=== PATIENT | female | born 1995 | race Caucasian/White ===

== ENCOUNTER 2019-01-31 04:46 | Emergency (ER) | payer MEDICAID, OTHER ==
[~2019-01-31] VITALS: Ht 157 cm; Wt 79.5 kg
[~2019-01-31 04:46] MED LIST: ACHD5005 PO; CEPH500C PO; CITA10TA GT; CLIN300C11 PO; CLIN300C3 PO; HYDR-757 PO; IBUP-1773 PO; Ibuprofen PO; KETO75CA PO; LRZ1T PO; METR500T PO; NITR100C PO; ONDA4TAB11 PO; OXYC-12 PO
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
[2019-01-31] MEDS ORDERED: KETOROLAC 60 MG/2 ML VIAL IM ONE (05:15)
[2019-01-31] MEDS ORDERED: CYCL10TA9 PO (05:24)
[2019-01-31 05:35] VITALS: BP 152/80
--- NOTE | 2019-01-31 06:43 | Diagnostic Imaging Report ---
INDICATION: Injury, pain and swelling FINDINGS: No pathologically displaced fat pad. No articular incongruity. No fracture or dislocation. IMPRESSION: Unremarkable 3 view right elbow Dictated by: Dictated on workstation # [id number]
--- OUTSIDE RECORDS SUMMARY | 2019-02-23 19:20 | XMS REPORT ---
Author Author SHIRAZ ROBERTS POS Organization [facility] SP Address [address] [place] [address] SP Care Team Providers Care Swimming Coach Name Role Phone POS SHIRAZ ROBERTS Unavailable SP PROBLEMS Type Condition ICD9-CM Code [id number] Code Onset Dates Condition S tatus SNOMED POS Problem Multiple loss, not currently N9 6 Active [id number] POS Problem Gastroesophageal reflux disease, esophagitis pre sence not specified SP Active 547790494 SP Problem Weight gain R63.5 Active 9228273 SP ALLERGIES No Information ENCOUNTERS Encounter Location Date Diagnosis [place] [address] [place] [id number] [place] [phone] SP Oct, Weight loss counseling, enco unter for Z71.3 and Gastroesophageal SP disease, esophagitis presence not specified K21.9 [place] [address] [place] [id number] [address] [place] [phone] SP July, High-risk sexual behavior Z7 2.51 and Exposure to STD Z20.2 SP [place] [address] [place] [id number] [place] [phone] SP Dec, Depression, unspecified depr ession type F32.9 SP [place] [address] [facility] [id number] [address] [place] [phone] SP July, Multiple loss, not currently N96 and Acute SPrecurrent maxillary sinusitis J01.00 [place] [address] [place] [id number] [address] [place] [phone] SP July, Lipoma D17.9 ; Weight gain R 63.5 and Multiple loss, not SPcurrently N96 [place] [address] [place] [id number] [place] [phone] SP Jul, SAB (spontaneous ) O 03.9 SP [place] [address] [address] SP May, SAB (spontaneous ) O 03.9 SP [place] [address] [address] SP May, Spontaneous miscarriage O03. 9 SP [place] [address] [address] SP May, Spontaneous miscarriage O03. 9 and Desire for Z31.9 SP [place] [address] [phone] SP May, Threatened miscarriage O20.0 ; Screening for malignant neoplasm SP cervix Z12.4 and Abdominal pain, generalized R10.84 [facility] [address] SP May, Gastritis K29.70 ; Z33.1 and Acute bacterial SP H10.30 [facility] [address] SP 17 May, 2015 Upper respiratory tract infe ction, unspecified type J06.9 ; SP J02.9 ; Nausea and vomiting, unspecified intactability, vomiting of unspecified type R11.2 and Rash R21 [place] [address] [address] SP Jan, Encounter for immunization Z 23 SP [place] [address] [address] SP Jul, SP [place] [address] [address] SP Mar, SP [place] [address] [address] SP Mar, SP [place] [address] [place] [address] SP Dec, SP [facility] [address] [id number] [address] [place] [address], [place] [address] SP Dec, SP [facility] [address] [id number] [address] [place] [address], [place] [address] SP Dec, SP [facility] [address] [id number] [address] [place] [address], [place] [address] SP Dec, SP [facility] [address] [id number] [address] [place] [address], [place] [address] SP Dec, SP [facility] [address] [id number] [address] [place] [address], [place] [address] SP Dec, SP [facility] [address] [id number] [address] [place] [address], [place] [address] SP Oct, SP [facility] [address] [id number] [address] [place] [address], [place] [address] SP Oct, SP [facility] [address] [id number] [address] [place] [address], [place] [address] SP Oct, SP [facility] [address] [id number] [address] [place] [address], [place] [address] SP Oct, SP [facility] [address] [id number] [address] [place] [address], [place] [address] SP Sep, SP [facility] [address] [id number] [address] [place] [address], [place] [address] SP Sep, SP [facility] [address] [id number] [address] [place] [address], [place] [address] SP Sep, SP [facility] [address] [id number] [address] [place] [address], [place] [address] SP Sep, SP [facility] [address] [id number] [address] [place] [address], [place] [address] SP Aug, SP [facility] [address] [id number] [address] [place] [phone] SP Aug, SP [facility] [address] [id number] [address] [place] [phone] SP Aug, SP [facility] [address] [id number] [address] [place] [phone] SP Aug, SP [facility] [address] [id number] [address] [place] [phone] SP Aug, SP [facility] [address] [id number] [address] [place] [phone] SP Aug, SP [facility] [address] [id number] [address] [place] [phone] SP July, SP [facility] [address] [id number] [address] [place] [phone] SP July, SP [facility] [address] [id number] [address] [place] [phone] SP July, SP [facility] [address] [id number] [address] [place] [phone] SP July, SP [facility] [address] [id number] [address] [place] [phone] SP July, SP IMMUNIZATIONS No Known Immunizations SOCIAL HISTORY Never Assessed REASON FOR VISIT PLAN OF CARE VITAL SIGNS MEDICATIONS No Known Medications RESULTS No Results PROCEDURES No Known procedures INSTRUCTIONS MEDICATIONS ADMINISTERED No Known Medications MEDICAL (GENERAL) HISTORY Type Description Date POS Medical History Heart murmur SP Medical History Intrauterine affecting management of mother, unspecified SP to episode of care SP Medical History Intrauterine affecting management of mother, unspecified SP to episode of care SP Medical History Lipoma SP Surgical History wound debridement left thigh SP Hospitalization History still born child 2013 SP
--- OUTSIDE RECORDS SUMMARY | 2019-02-23 19:20 | XMS REPORT ---
Author Author EVA ESCOBAR POS Organization [facility] SP Address Unknown SP SP Care Team Providers Care Marketing Data Specialist Name Role Phone POS HARJEET ESCOBARLEY Unavailable SP PROBLEMS Type Condition ICD9-CM Code MVD86-OG Code Onset Dates Condition S tatus SNOMED POS Problem Multiple loss, not currently N9 6 Active [id number] POS Problem Gastroesophageal reflux disease, esophagitis pre sence not specified SP Active 668703014 SP Problem Weight gain R63.5 Active 6256464 SP ALLERGIES No Information ENCOUNTERS Encounter Location Date Diagnosis [place] [address] [place] [id number] [address] [place] [phone] SP Oct, Weight loss counseling, enco unter for Z71.3 and Gastroesophageal SP disease, esophagitis presence not specified K21.9 [place] [address] [place] [id number] [address] [place] [phone] SP July, High-risk sexual behavior Z7 2.51 and Exposure to STD Z20.2 SP [place] [address] [place] [id number] [address] [place] [phone] SP Dec, Depression, unspecified depr ession type F32.9 SP [place] [address] [address] [facility] [id number] [address] [place] [phone] SP July, Multiple loss, not currently N96 and Acute SPrecurrent maxillary sinusitis J01.00 [place] [address] [address] [facility] [id number] [address] [place] [phone] SP July, Lipoma D17.9 ; Weight gain R 63.5 and Multiple loss, not SPcurrently N96 [place] [address] [place] [id number] [address] [place] [phone] SP Jul, SAB (spontaneous ) O 03.9 SP [facility] [address] [place] [id number] [place] [phone] SP May, SAB (spontaneous ) O 03.9 SP [facility] [address] [place] [id number] [address] [place] [phone] SP May, Spontaneous miscarriage O03. 9 SP [place] [address] [address] SP May, Spontaneous miscarriage O03. 9 and Desire for Z31.9 SP [place] [address] [phone] SP May, Threatened miscarriage O20.0 ; Screening for malignant neoplasm SP cervix Z12.4 and Abdominal pain, generalized R10.84 [facility] [address] SP May, Gastritis K29.70 ; Z33.1 and Acute bacterial SP H10.30 [facility] [address] SP May, Upper respiratory tract infe ction, unspecified type J06.9 ; SP J02.9 ; Nausea and vomiting, unspecified intactability, vomiting of unspecified type R11.2 and Rash R21 [place] [address] [place] [id number] [address] [place] [phone] SP Jan, Encounter for immunization Z 23 SP [facility] [address] [place] [id number] [address] [place] [phone] SP Jul, SP [place] [address] [id number] SP Mar, SP [facility] [address] [place] [id number] [address] [place] [phone] SP Mar, SP [place] [address] [id number] SP Dec, SP [facility] [address] [id number] [address] [place] [address], [place] [address] SP Dec, SP [facility] [address] [id number] [address] [place] [address], [place] [address] SP Dec, SP [facility] [address] [id number] [address] [place] [address], [place] [address] SP Dec, SP [facility] [address] [id number] [address] [place] [address], [place] [address] SP Dec, SP [facility] [address] [id number] [address] [place] [address], [place] [address] SP Dec, SP [facility] [address] [id number] [address] [place] [address], [place] [address] SP Oct, SP [facility] [address] [id number] [address] [place] [address], [place] [address] SP Oct, SP [facility] [address] [id number] [address] [place] [address], [place] [phone] SP Oct, SP [facility] [address] [id number] [address] [place] [address], [place] [address] SP Oct, SP [facility] [address] [id number] [address] [place] [address], [place] [address] SP Sep, SP [facility] [address] [id number] [address] [place] [address], [place] [address] SP Sep, SP [facility] [address] [id number] [address] [place] [address], [place] [address] SP Sep, SP [facility] [address] [id number] [address] [place] [address], [place] [address] SP Sep, SP [facility] [address] [id number] [address] [place] [address], [place] [address] SP Aug, SP [facility] [address] [id number] [address] [place] [phone] SP Aug, SP [facility] [address] [id number] [address] [place] [phone] SP Aug, SP [facility] [address] [id number] [address] [place] [phone] SP Aug, SP [facility] [address] [id number] [address] [place] [phone] SP Aug, SP [facility] [address] [id number] [address] [place] [phone] SP Aug, SP [facility] [address] [id number] [address] [place] [phone] SP July, SP [facility] [address] [id number] [address] [place] [id number] SP July, SP [facility] [address] [id number] [address] [place] [phone] SP July, SP [facility] [address] [id number] [address] [place] [id number] SP July, SP [facility] [address] [id number] [address] [place] [phone] SP July, SP IMMUNIZATIONS No Known Immunizations [...]
--- OUTSIDE RECORDS SUMMARY | 2019-02-23 19:20 | XMS REPORT ---
Author Author JANETH RESTREPO POS Organization [facility] SP Address [address] [place] [address] SP Care Team Providers Care Couples Therapist Name Role Phone POS JANETH RESTREPO Unavailable SP PROBLEMS Type Condition ICD9-CM Code [id number] Code Onset Dates Condition S tatus SNOMED POS Problem Multiple loss, not currently N9 6 Active [id number] POS Problem Gastroesophageal reflux disease, esophagitis pre sence not specified SP Active 289529171 SP Problem Weight gain R63.5 Active 2632303 SP ALLERGIES No Information ENCOUNTERS Encounter Location Date Diagnosis POS [place] [address] [address] [place] [id number] [address] [place] [phone] SP Oct, Weight loss counseling, enco unter for Z71.3 and Gastroesophageal SP disease, esophagitis presence not specified K21.9 [place] [address] [address] [place] [id number] [address] [place] [address] SP July, High-risk sexual behavior Z7 2.51 and Exposure to STD Z20.2 SP [place] [address] [address] [place] [id number] [address] [place] [phone] SP Dec, Depression, unspecified depr ession type F32.9 SP [place] [address] [address] [place] [id number] [address] [place] [phone] SP July, Multiple loss, not currently N96 and Acute SPrecurrent maxillary sinusitis J01.00 [place] [address] [place] [id number] [address] [place] [phone] SP July, Lipoma D17.9 ; Weight gain R 63.5 and Multiple loss, not SPcurrently N96 [place] [address] [address] [place] [id number] [address] [place] [phone] SP Jul, SAB (spontaneous ) O 03.9 SP [place] [address] [address] SP May, SAB (spontaneous ) O 03.9 SP [place] [address] [address] SP May, Spontaneous miscarriage O03. 9 SP [place] [address] [address] SP May, Spontaneous miscarriage O03. 9 and Desire for Z31.9 SP [place] [address] [address] SP May, Threatened miscarriage O20.0 ; Screening for malignant neoplasm SP cervix Z12.4 and Abdominal pain, generalized R10.84 [facility] [address] SP May, Gastritis K29.70 ; Z33.1 and Acute bacterial SP H10.30 [facility] [address] SP May, Upper respiratory tract infe ction, unspecified type J06.9 ; SP J02.9 ; Nausea and vomiting, unspecified intactability, vomiting of unspecified type R11.2 and Rash R21 [place] [address] [address] SP Jan, Encounter for immunization Z 23 SP [place] [address] [address] [place] [id number] [address] [place] [phone] SP Jul, SP [place] [address] [address] SP Mar, SP [place] [address] [place] [id number] [address] [place] [phone] SP Mar, SP [place] [address] [address] [place] [address] SP Dec, SP [facility] [address] [id number] [address] [place] [address], [place] [address] SP Dec, SP [facility] [address] [id number] [address] [place] [address], [place] [address] SP Dec, SP [facility] [address] [id number] [address] [place] [address], [place] [address] SP Dec, SP [facility] [address] [id number] [address] [place] [address], [place] [address] SP Dec, SP [facility] [address] [id number] [address] [place] [address], [place] [address] SP Dec, SP [facility] [address] [id number] [address] [place] [address], [place] [address] SP Oct, SP [facility] [address] [id number] [address] [place] [address], [place] [address] SP Oct, SP [facility] [address] [id number] [address] [place] [address], [place] [address] SP Oct, SP [facility] [address] [id number] [address] [place] [address], [place] [address] SP Oct, SP [facility] [address] [id number] [address] [place] [address], [place] [address] SP Sep, SP [facility] [address] [id number] [address] [place] [address], [place] [address] SP Sep, SP [facility] [address] [id number] [address] [place] [address], [place] [address] SP Sep, SP [facility] [address] [id number] [address] [place] [address], [place] [address] SP Sep, SP [facility] [address] [id number] [address] [place] [address], [place] [address] SP Aug, SP [facility] [address] [id number] [address] [place] [phone] SP Aug, SP [facility] [address] [id number] [address] [place] [phone] SP Aug, SP [facility] [address] [id number] [address] [place] [phone] SP Aug, SP [facility] [address] [id number] [address] [place] [phone] SP Aug, SP [facility] [address] [id number] [address] [place] [phone] SP Aug, SP [facility] [address] [id number] [address] [place] [phone] SP July, SP [facility] [address] [id number] [address] [place] [phone] SP July, SP [facility] [address] [id number] [address] [place] [phone] SP July, SP [facility] [address] [id number] [address] [place] [phone] SP July, SP [facility] [address] [id number] [address] [place] [phone] SP July, SP IMMUNIZATIONS No Known Immunizations SOCIAL HISTORY Never Assessed REASON FOR VISIT PLAN OF CARE VITAL SIGNS Height 63 in 2013-10-22 POS Weight 189 lbs 2013-10-22 POS Temperature 97.2 degrees Fahrenheit 2013-10-22 POS Heart Rate 88 bpm 2013-10-22 POS Respiratory Rate 20 2013-10-22 POS Blood pressure systolic 116 mmHg 2013-10-22 POS Blood pressure diastolic 70 mmHg 2013-10-22 POS MEDICATIONS No Known Medications RESULTS No Results PROCEDURES Procedure Date Ordered Result Body Site POS OB US >/=14 WKS, SNGL FETUS October 22, 2013 SP URINE-NO MICRO October 22, 2013 SP INSTRUCTIONS MEDICATIONS ADMINISTERED No Known Medications MEDICAL [...]
--- OUTSIDE RECORDS SUMMARY | 2019-02-23 19:20 | XMS REPORT ---
Author Author TAURUS FISHER POS Organization [facility] SP Address [facility] [place] [address] SP Care Team Providers Care Door Repairman Name Role Phone POS TAURUS FISHER Unavailable SP PROBLEMS ALLERGIES No Information ENCOUNTERS IMMUNIZATIONS No Known Immunizations SOCIAL HISTORY No smoking Hx information available REASON FOR VISIT PLAN OF CARE VITAL SIGNS MEDICATIONS No Known Medications RESULTS No Results PROCEDURES INSTRUCTIONS MEDICATIONS ADMINISTERED No Known Medications MEDICAL (GENERAL) HISTORY
--- OUTSIDE RECORDS SUMMARY | 2019-02-23 19:20 | XMS REPORT ---
Author Author JANETH RESTREPO POS Organization [facility] SP Address [address] [place] [address] SP Care Team Providers Care Clam Grower Name Role Phone POS JANETH RESTREPO Unavailable SP PROBLEMS Type Condition ICD9-CM Code OSB00-QX Code Onset Dates Condition S tatus SNOMED POS Problem Multiple loss, not currently N9 6 Active [id number] POS Problem Gastroesophageal reflux disease, esophagitis pre sence not specified SP Active 430447054 SP Problem Weight gain R63.5 Active 4149881 SP ALLERGIES No Information ENCOUNTERS Encounter Location Date Diagnosis POS [place] [address] [address] [place] [id number] [address] [place] [phone] SP Oct, Weight loss counseling, enco unter for Z71.3 and Gastroesophageal SP disease, esophagitis presence not specified K21.9 [place] [address] [address] [place] [id number] [address] [place] [address] SP July, High-risk sexual behavior Z7 2.51 and Exposure to STD Z20.2 SP [place] [address] [address] [place] [id number] [address] [place] [address] SP Dec, Depression, unspecified depr ession type F32.9 SP [place] [address] [address] [place] [id number] [address] [place] [address] SP July, Multiple loss, not currently N96 and Acute SPrecurrent maxillary sinusitis J01.00 [place] [address] [address] [place] [id number] [address] [place] [address] SP July, Lipoma D17.9 ; Weight gain R 63.5 and Multiple loss, not SPcurrently N96 [place] [address] [address] [place] [id number] [address] [place] [address] SP Jul, SAB (spontaneous ) O 03.9 SP [place] [address] [address] SP May, SAB (spontaneous ) O 03.9 SP [place] [address] [address] SP May, Spontaneous miscarriage O03. 9 SP [place] [address] [phone] SP May, Spontaneous miscarriage O03. 9 and Desire for Z31.9 SP [place] [address] [address] SP May, Threatened miscarriage O20.0 ; Screening for malignant neoplasm SP cervix Z12.4 and Abdominal pain, generalized R10.84 [facility] [address] SP May, Gastritis K29.70 ; Z33.1 and Acute bacterial SP H10.30 [facility] [address] SP May, Upper respiratory tract infe ction, unspecified type J06.9 ; SP J02.9 ; Nausea and vomiting, unspecified intactability, vomiting of unspecified type R11.2 and Rash R21 [place] [address] [address] SP Jan, Encounter for immunization Z 23 SP [place] [address] [address] [place] [id number] [address] [place] [phone] SP Jul, SP [place] [address] [address] SP Mar, SP [place] [address] [address] [place] [id number] [address] [place] [phone] SP Mar, SP [place] [address] [place] [address] SP Dec, SP [facility] [address] [id number] [address] [place] [address], [place] [address] SP Dec, SP [facility] [address] [id number] [address] [place] [address], [place] [address] SP Dec, SP [facility] [address] [id number] [address] [place] [address], [place] [address] SP Dec, SP [facility] [address] [id number] [address] [place] [address], [place] [address] SP Dec, SP [facility] [address] [id number] [address] [place] [address], [place] [address] SP Dec, SP [facility] [address] [id number] [address] [place] [address], [place] [address] SP Oct, SP [facility] [address] [id number] [address] [place] [address], [place] [address] SP Oct, SP [facility] [address] [id number] [address] [place] [address], [place] [address] SP Oct, SP [facility] [address] [id number] [address] [place] [address], [place] [address] SP Oct, SP [facility] [address] [id number] [address] [place] [address], [place] [address] SP Sep, SP [facility] [address] [id number] [address] [place] [address], [place] [address] SP Sep, SP [facility] [address] [id number] [address] [place] [address], [place] [address] SP Sep, SP [facility] [address] [id number] [address] [place] [address], [place] [address] SP Sep, SP [facility] [address] [id number] [address] [place] [address], [place] [address] SP Aug, SP [facility] [address] [id number] [address] [place] [address] SP Aug, SP [facility] [address] [id number] [address] [place] [phone] SP Aug, SP [facility] [address] [id number] [address] [place] [address] SP Aug, SP [facility] [address] [id number] [address] [place] [address] SP Aug, SP [facility] [address] [id number] [address] [place] [address] SP Aug, SP [facility] [address] [id number] [address] [place] [phone] SP July, SP [facility] [address] [id number] [address] [place] [address] SP July, SP [facility] [address] [id number] [address] [place] [address] SP July, SP [facility] [address] [id number] [address] [place] [phone] SP July, SP [facility] [address] [id number] [address] [place] [phone] SP July, SP IMMUNIZATIONS No Known Immunizations SOCIAL HISTORY Never Assessed REASON FOR VISIT PLAN OF CARE VITAL SIGNS Height 63 in 2014-01-07 POS Weight 191.5 lbs 2014-01-07 POS Temperature 97.1 degrees Fahrenheit 2014-01-07 POS Heart Rate 87 bpm 2014-01-07 POS Respiratory Rate 20 2014-01-07 POS Blood pressure systolic 135 mmHg 2014-01-07 POS Blood pressure diastolic 88 mmHg 2014-01-07 POS MEDICATIONS No Known Medications RESULTS No Results PROCEDURES Procedure Date Ordered Result Body Site POS THER/PROPH/DIAG INJ, SC/IM Jan 07, 2014 SP Medroxyprogesterone inj Jan 07, 2014 SP URINE TEST Jan 07, 2014 SP URINE-NO MICRO Jan 07, 2014 SP INSTRUCTIONS MEDICATIONS ADMINISTERED No Known Medications [...]
--- OUTSIDE RECORDS SUMMARY | 2019-02-23 19:20 | XMS REPORT | Clinical Summary ---
Author Author [facility] POS Organization [facility] SP Address Unknown SP Phone Unavailable SP Care Team Providers Care Head Screen Worker Name Role Phone POS Rhianna Hines MD Unavailable [phone] SP Source Comments Some departments are not documenting in the electronic medical record. If you d o not see the information that you expected, contact Release of Information in [facility] Health Information Management department at [phone] for further assistan ce in locating additional records.[facility] Allergies No Known Allergies Medications End Date Status POS Medication Sig Dispensed Refills Start SP Date SP Active SP metFORMIN (GLUCOPHAGE) Take 1 Tab by 180 Tab 3 0 SP 500 mg tabletIndications: mouth twice 2 SP Dorsal cervical fat pads, daily with SP Metabolic syndrome meals. SP Active SP Naproxen 500 mg TbEC Take 1 Tab by 60 Tab 2 SP mouth as 2 SP Needed (q 12 SP hours). SP Active Problems Problem Noted Date POS Obesity 10/06/2011 SP Sleep disorder 10/06/2011 SP Family History Medical History Relation Name Comments POS Heart Disease Maternal SP Grandfather SP Cancer Maternal SP Grandmother SP Diabetes Paternal SP Grandmother SP Relation Name Status Comments SP Maternal Grandfather SP Maternal Grandmother SP Paternal Grandmother SP Social History Date POS Tobacco Use Types Packs/Day Years Used SP SP Never Smoker SP Smokeless Tobacco: Never SP Used SP Tobacco Cessation: Counseling Given: No SP Sex Assigned at Date Recorded SP Not on file SP Industry POS Job Start Date Occupation SP Not on file SP Not on file Not on file SP Travel End POS Travel History Travel Start SP No recent travel history available. SP Last Filed Vital Signs Reading Time Taken Comments POS Vital Sign SP 114/73 10/06/2011 2:56 PM CDT SP Blood Pressure SP 74 10/06/2011 2:56 PM CDT SP Pulse SP - - SP Temperature SP - - SP Respiratory Rate SP - - SP Oxygen Saturation SP - - SP Inhaled Oxygen SP Concentration SP 86.2 kg (190 lb) 10/06/2011 2:56 PM CDT SP Weight SP 162.6 cm (5' 4") 10/06/2011 2:56 PM CDT SP Height SP 32.61 10/06/2011 2:56 PM CDT SP Body Mass Index SP Plan of Treatment Health Maintenance Due Date Last Done Comments POS HIV SCREENING 2008 SP HPV VACCINES (1 - Female 2008 SP 3-dose series) SP DTAP/TDAP VACCINES (1 - 06/12/2011 SP Tdap) SP PHYSICAL (COMPREHENSIVE) 06/12/2011 SP EXAM SP CERVICAL CANCER SCREENING 2014 SP INFLUENZA VACCINE 10/31/2018 SP Results Not on filefrom Last 3 Months
--- OUTSIDE RECORDS SUMMARY | 2019-02-23 19:21 | XMS REPORT ---
Author Author EVETTE LEZAMA POS Organization [facility] SP Address [address] [place] [address] SP Care Team Providers Care Railroad Brakeman Name Role Phone POS EVETTE LEZAMA Unavailable SP PROBLEMS Type Condition ICD9-CM Code RSO59-BW Code Onset Dates Condition S tatus SNOMED POS Problem Gastroesophageal reflux disease, esophagitis pre sence not specified POS Active 425612368 SP Problem Multiple loss, not currently N9 6 Active 202010881 SP Problem Weight gain R63.5 Active 4735805 SP ALLERGIES No Known Allergies ENCOUNTERS Encounter Location Date Diagnosis POS [place] [address] [address] [place] [id number] [address] [place] [phone] SP Oct, Weight loss counseling, enco unter for Z71.3 and Gastroesophageal SP disease, esophagitis presence not specified K21.9 [place] [address] [place] [id number] [address] [place] [address] SP July, High-risk sexual behavior Z7 2.51 and Exposure to STD Z20.2 SP [place] [address] [place] [id number] [address] [place] [address] SP Dec, Depression, unspecified depr ession type F32.9 SP [place] [address] [address] [place] [id number] [address] [place] [address] SP July, Multiple loss, not currently N96 and Acute SPrecurrent maxillary sinusitis J01.00 [place] [address] [address] [place] [id number] [address] [place] [address] SP July, Lipoma D17.9 ; Weight gain R 63.5 and Multiple loss, not SPcurrently N96 [place] [address] [address] [place] [id number] [place] [address] SP Jul, SAB (spontaneous ) O 03.9 SP [place] [address] [address] SP May, SAB (spontaneous ) O 03.9 SP [place] [address] [place] [id number] [place] [address] SP May, Spontaneous miscarriage O03. 9 SP [place] [address] [address] SP May, Spontaneous miscarriage O03. 9 and Desire for Z31.9 SP [place] [address] [address] SP May, Threatened miscarriage O20.0 ; Screening for malignant neoplasm SP cervix Z12.4 and Abdominal pain, generalized R10.84 [facility] [address] SP May, Gastritis K29.70 ; Z33.1 and Acute bacterial SP H10.30 [facility] [address] SP May, Upper respiratory tract infe ction, unspecified type J06.9 ; SP J02.9 ; Nausea and vomiting, unspecified intactability, vomiting of unspecified type R11.2 and Rash R21 [place] [address] [place] [id number] [place] [address] SP Jan, Encounter for immunization Z 23 SP [place] [address] [place] [id number] [place] [address] SP Jul, SP [place] [address] [place] [id number] [place] [address] SP Mar, SP [place] [address] [place] [id number] [place] [address] SP Mar, SP [place] [address] [place] [id number] [place] [address], [place] [address] SP Dec, SP [facility] [address] [id number] [address] [place] [address], [place] [address] SP Dec, SP [facility] [address] [id number] [address] [place] [address], [place] [address] SP Dec, SP [facility] [address] [id number] [address] [place] [address], [place] [address] SP Dec, SP [facility] [address] [id number] [address] [place] [address], [place] [address] SP Dec, SP [facility] [address] [id number] [address] [place] [address], [place] [address] SP Dec, SP [facility] [address] [id number] [address] [place] [address], [place] [address] SP Oct, SP [facility] [address] [id number] [address] [place] [address], [place] [address] SP Oct, SP [facility] [address] [id number] [address] [place] [address], [place] [address] SP Oct, SP [facility] [address] [id number] [address] [place] [address], [place] [address] SP Oct, SP [facility] [address] [id number] [address] [place] [address], [place] [address] SP Sep, SP [facility] [address] [id number] [address] [place] [address], [place] [address] SP Sep, SP [facility] [address] [id number] [address] [place] [address], [place] [address] SP Sep, SP [facility] [address] [id number] [address] [place] [address], [place] [address] SP Sep, SP [facility] [address] [id number] [address] [place] [address], [place] [address] SP Aug, SP [facility] [address] [id number] [address] [place] [address] SP Aug, SP [facility] [address] [id number] [address] [place] [phone] SP Aug, SP [facility] [address] [id number] [address] [place] [address] SP Aug, SP [facility] [address] [id number] [address] [place] [address] SP Aug, SP [facility] [address] [id number] [address] [place] [address] SP Aug, SP [facility] [address] [id number] [address] [place] [address] SP July, SP [facility] [address] [id number] [address] [place] [address] SP July, SP [facility] [address] [id number] [address] [place] [address] SP July, SP [facility] [address] [id number] [address] [place] [address] SP July, SP [facility] [address] [id number] [address] [place] [address] SP July, SP IMMUNIZATIONS No Known Immunizations SOCIAL HISTORY Never Assessed REASON FOR VISIT Weight management consult would like to talk about diet pills Devyn Grove RN, aci d reflux issues PLAN OF CARE Activity Details POS SP Follow Up 4 Weeks Reason:wt loss SP VITAL SIGNS Height 63 in 2017-11-07 POS Weight 211.5 lbs 2017-11-07 POS Temperature 99.1 degrees Fahrenheit 2017-11-07 POS Heart Rate 86 bpm 2017-11-07 POS Respiratory Rate 16 2017-11-07 POS BMI 37.46 kg/m2 2017-11-07 POS Blood pressure systolic 120 mmHg 2017-11-07 POS Blood pressure diastolic 72 mmHg 2017-11-07 POS MEDICATIONS Medication Instructions Dosage Frequency Start Date End Date Duration S tatus POS Phentermine HCl 37.5 MG Orally Once a day 1 tablet 24h Oct, Dec, SP days Active SP Ibuprofen 600 MG Orally Three times a day 1 tablet 8h Active SP Prilosec OTC 20 MG Orally Once a day 1 tablet 24h Active SP RESULTS No Results PROCEDURES No Known procedures [...]
--- OUTSIDE RECORDS SUMMARY | 2019-02-23 19:21 | XMS REPORT ---
Author Author JEAN COOLEY POS Organization [facility] SP Address [address] [place] [id number] SP Care Team Providers Care Photographer Finish Name Role Phone POS JEAN COOLEY Unavailable SP PROBLEMS Type Condition ICD9-CM Code XER15-VB Code Onset Dates Condition S tatus SNOMED POS Problem Weight gain R63.5 Active 7459936 POS Problem Multiple loss, not currently N9 6 Active [id number] SP Assessment Depression, unspecified depression type F32.9 14 Dec, 2015 Active SP ALLERGIES Unknown Allergies SOCIAL HISTORY No smoking Hx information available PLAN OF CARE VITAL SIGNS MEDICATIONS Unknown Medications RESULTS No Results PROCEDURES Procedure Date Ordered Related Diagnosis Body Site POS Psych diagnostic evaluation, established patient Dec 15, 2015 SP IMMUNIZATIONS No Known Immunizations
--- OUTSIDE RECORDS SUMMARY | 2019-02-23 19:21 | XMS REPORT ---
Author Author CHITRA CONRAD POS Organization [facility] SP Address [address] [place] [address] SP Care Team Providers Care Tubular Products Fabricator Name Role Phone POS CHITRA CONRAD Unavailable SP PROBLEMS Type Condition ICD9-CM Code [id number] Code Onset Dates Condition S tatus SNOMED POS Problem Weight gain R63.5 Active 3382229 POS Problem Multiple loss, not currently N9 6 Active [id number] SP ALLERGIES No Known Allergies SOCIAL HISTORY Never Assessed PLAN OF CARE Activity Details POS SP Follow Up prn Reason: SP VITAL SIGNS Height 63 in 2016-08-07 POS Weight 189.0 lbs 2016-08-07 POS Temperature 98.9 degrees Fahrenheit 2016-08-07 POS Heart Rate 90 bpm 2016-08-07 POS Respiratory Rate 18 2016-08-07 POS BMI 33.48 kg/m2 2016-08-07 POS Blood pressure systolic 126 mmHg 2016-08-07 POS Blood pressure diastolic 82 mmHg 2016-08-07 POS MEDICATIONS No Known Medications RESULTS Name Result Date Reference Range POS TEST, URINE (IN HOUSE) 2016-08-07 SP RESULTS Negative SP Lot # [id number] SP Control + SP Exp date 10/30/2017 SP GC/CHLAM URINE (STATE) 2016-08-07 SP CHLAMYDIA negative SP GC negative SP HEP C ANTIBODY (STATE) 2016-08-07 SP RESULTS Non-reactive SP HEP B SURFACE ANTIGEN (STATE) 2016-08-07 SP HEP B ANTIBODY Non-reactive SP HEP B ANTIBODY (RML) SP HEP B ANTIBODY (STATE) SP SYPHILIS (STATE) 2016-08-07 SP HIV (STATE) 2016-08-07 SP PROCEDURES Procedure Date Ordered Result Body Site POS No Charge August 07, 2016 SP URINE TEST August 07, 2016 SP VENIPUNCT, ROUTINE* August 07, 2016 SP IMMUNIZATIONS No Known Immunizations MEDICAL (GENERAL) HISTORY Type Description Date POS [...]
--- OUTSIDE RECORDS SUMMARY | 2019-02-23 19:21 | XMS REPORT ---
Author Author JANETH RESTREPO POS Organization [facility] SP Address [address] [place] [address] SP Care Team Providers Care Team Assembler Name Role Phone POS JANETH RESTREPO Unavailable SP PROBLEMS Type Condition ICD9-CM Code [id number] Code Onset Dates Condition S tatus SNOMED POS Problem Multiple loss, not currently N9 6 Active [id number] POS Problem Gastroesophageal reflux disease, esophagitis pre sence not specified SP Active 321031578 SP Problem Weight gain R63.5 Active 8780654 SP ALLERGIES No Information ENCOUNTERS Encounter Location Date Diagnosis POS [place] [address] [place] [id number] [place] [address] SP Oct, Weight loss counseling, enco unter for Z71.3 and Gastroesophageal SP disease, esophagitis presence not specified K21.9 [place] [address] [place] [id number] [place] [address] SP July, High-risk sexual behavior Z7 2.51 and Exposure to STD Z20.2 SP [place] [address] [place] [id number] [place] [address] SP Dec, Depression, unspecified depr ession type F32.9 SP [place] [address] [place] [id number] [place] [phone] SP July, Multiple loss, not currently N96 and Acute SPrecurrent maxillary sinusitis J01.00 [place] [address] [place] [id number] [address] [place] [address] SP July, Lipoma D17.9 ; Weight gain R 63.5 and Multiple loss, not SPcurrently N96 [place] [address] [place] [id number] [place] [address] SP Jul, SAB (spontaneous ) O 03.9 SP [place] [address] [phone] SP May, SAB (spontaneous ) O 03.9 SP [place] [address] [phone] SP May, Spontaneous miscarriage O03. 9 SP [place] [address] [address] SP May, Spontaneous miscarriage O03. 9 and Desire for Z31.9 SP [place] [address] [address] SP May, Threatened miscarriage O20.0 ; Screening for malignant neoplasm SP cervix Z12.4 and Abdominal pain, generalized R10.84 [facility] [address] SP May, Gastritis K29.70 ; Z33.1 and Acute bacterial SP H10.30 [facility] [address] SP May, Upper respiratory tract infe ction, unspecified type J06.9 ; SP J02.9 ; Nausea and vomiting, unspecified intactability, vomiting of unspecified type R11.2 and Rash R21 [place] [address] [address] SP Jan, Encounter for immunization Z 23 SP [place] [address] [place] [id number] [place] [address] SP Jul, SP [place] [address] [phone] SP Mar, SP [place] [address] [place] [id number] [place] [phone] SP Mar, SP [place] [address] [place] [address] SP Dec, SP [facility] [address] [id number] [address] [place] [address], [place] [address] SP Dec, SP [facility] [address] [id number] [address] [place] [address], [place] [address] SP Dec, SP [facility] [address] [id number] [address] [place] [address], [place] [address] SP Dec, SP [facility] [address] [id number] [address] [place] [address], [place] [address] SP Dec, SP [facility] [address] [id number] [address] [place] [address], [place] [address] SP Dec, SP [facility] [address] [id number] [address] [place] [address], [place] [address] SP Oct, SP [facility] [address] [id number] [address] [place] [address], [place] [address] SP Oct, SP [facility] [address] [id number] [address] [place] [address], [place] [address] SP Oct, SP [facility] [address] [id number] [address] [place] [address], [place] [address] SP Oct, SP [facility] [address] [id number] [address] [place] [address], [place] [address] SP Sep, SP [facility] [address] [id number] [address] [place] [address], [place] [address] SP Sep, SP [facility] [address] [id number] [address] [place] [address], [place] [address] SP Sep, SP [facility] [address] [id number] [address] [place] [address], [place] [address] SP Sep, SP [facility] [address] [id number] [address] [place] [address], [place] [address] SP Aug, SP [facility] [address] [id number] [address] [place] [address] SP Aug, SP [facility] [address] [id number] [address] [place] [address] SP Aug, SP [facility] [address] [id number] [address] [place] [address] SP Aug, SP [facility] [address] [id number] [address] [place] [address] SP Aug, SP [facility] [address] [id number] [address] [place] [address] SP Aug, SP [facility] [address] [id number] [address] [place] [address] SP July, SP [facility] [address] [id number] [address] [place] [address] SP July, SP [facility] [address] [id number] [address] [place] [phone] SP July, SP [facility] [address] [id number] [address] [place] [address] SP July, SP [facility] [address] [id number] [address] [place] [address] SP July, SP IMMUNIZATIONS No Known Immunizations [...]
--- OUTSIDE RECORDS SUMMARY | 2019-02-23 19:21 | XMS REPORT ---
Author Author Migration, Doctor POS Organization [facility] SP Address Unknown SP Phone Unavailable SP Care Team Providers Care Safety Associate Name Role Phone POS Migration, Doctor Unavailable Unavailable SP PROBLEMS Type Condition ICD9-CM Code [id number] Code Onset Dates Condition S tatus SNOMED POS Problem Multiple loss, not currently N9 6 Active [id number] POS Problem Gastroesophageal reflux disease, esophagitis pre sence not specified SP Active 144454111 SP Problem Weight gain R63.5 Active 1586291 SP ALLERGIES No Information ENCOUNTERS Encounter Location Date Diagnosis POS [place] [address] [place] [id number] [place] [phone] SP Oct, Weight loss counseling, enco unter for Z71.3 and Gastroesophageal SP disease, esophagitis presence not specified K21.9 [place] [address] [place] [id number] [address] [place] [phone] SP July, High-risk sexual behavior Z7 2.51 and Exposure to STD Z20.2 SP [place] [address] [place] [id number] [address] [place] [phone] SP Dec, Depression, unspecified depr ession type F32.9 SP [place] [address] [facility] [id number] [address] [place] [address] SP July, Multiple loss, not currently N96 and Acute SPrecurrent maxillary sinusitis J01.00 [place] [address] [facility] [id number] [address] [place] [phone] SP July, Lipoma D17.9 ; Weight gain R 63.5 and Multiple loss, not SPcurrently N96 [place] [address] [facility] [id number] [address] [place] [address] SP Jul, SAB (spontaneous ) O 03.9 SP [facility] [address] [facility] [id number] [address] [place] [address] SP May, SAB (spontaneous ) O 03.9 SP [facility] [address] [facility] [id number] [address] [place] [phone] SP May, Spontaneous miscarriage O03. 9 SP [facility] [address] [place] [id number] [place] [address] SP May, Spontaneous miscarriage O03. 9 and Desire for Z31.9 SP [facility] [address] [place] [id number] [place] [address] SP May, Threatened miscarriage O20.0 ; Screening for malignant neoplasm SP cervix Z12.4 and Abdominal pain, generalized R10.84 [facility] [address] SP May, Gastritis K29.70 ; Z33.1 and Acute bacterial SP H10.30 [facility] [address] SP May, Upper respiratory tract infe ction, unspecified type J06.9 ; SP J02.9 ; Nausea and vomiting, unspecified intactability, vomiting of unspecified type R11.2 and Rash R21 [facility] [address] [place] [id number] [place] [phone] SP Jan, Encounter for immunization Z 23 SP [facility] [address] [place] [address] [id number] [place] [phone] SP Jul, SP [facility] [address] [place] [id number] [address] [place] [phone] SP Mar, SP [facility] [address] [place] [id number] [place] [address] SP Mar, SP [facility] [address] [place] [id number] [address] [place] [address] SP Dec, SP [facility] [address] [id number] [address] [place] [address], [place] [address] SP Dec, SP [facility] [address] [id number] [address] [place] [address], [place] [address] SP Dec, SP [facility] [address] [id number] [address] [place] [address], [place] [address] SP Dec, SP [facility] [address] [id number] [address] [place] [address], [place] [address] SP Dec, SP [facility] [address] [id number] [address] [place] [address], [place] [address] SP Dec, SP [facility] [address] [id number] [address] [place] [address], [place] [address] SP Oct, SP [facility] [address] [id number] [address] [place] [address], [place] [address] SP Oct, SP [facility] [address] [id number] [address] [place] [address], [place] [address] SP Oct, SP [facility] [address] [id number] [address] [place] [address], [place] [address] SP Oct, SP [facility] [address] [id number] [address] [place] [address], [place] [address] SP Sep, SP [facility] [address] [id number] [address] [place] [address], [place] [address] SP Sep, SP [facility] [address] [id number] [address] [place] [address], [place] [address] SP Sep, SP [facility] [address] [id number] [address] [place] [address], [place] [address] SP Sep, SP [facility] [address] [id number] [address] [place] [address], [place] [address] SP Aug, SP [facility] [address] [id number] [address] [place] [address], [place] [address] SP Aug, SP [facility] [address] [id number] [address] [place] [phone] SP Aug, SP [facility] [address] [id number] [address] [place] [address] SP Aug, SP [facility] [address] [id number] [address] [place] [phone] SP Aug, SP [facility] [address] [id number] [address] [place] [phone] SP Aug, SP [facility] [address] [id number] [address] [place] [address] SP July, SP [facility] [address] [id number] [address] [place] [address] SP July, SP [facility] [address] [id number] [address] [place] [phone] SP July, SP [facility] [address] [id number] [address] [place] [phone] SP July, SP [facility] [address] [id number] [address] [place] [phone] SP July, SP IMMUNIZATIONS No Known Immunizations SOCIAL HISTORY Never Assessed REASON FOR VISIT EMR-[facility] PLAN OF CARE VITAL SIGNS MEDICATIONS No [...]
--- OUTSIDE RECORDS SUMMARY | 2019-02-23 19:21 | XMS REPORT ---
Author Author HE NATARAJAN POS Organization [employer] SP Address Unknown SP Phone Unavailable SP Care Team Providers Care Bus Driver Supervisor Name Role Phone POS HE NATARAJAN CP Unavailable SP Allergies No Known Allergies Problems Problem Type Condition Code Onset Dates Condition Statu s POS Problem Unspecified contraceptive management V25.9 Active SP Problem Health examination of defined subpopulation V70.5 Active SP Problem Intrauterine affecting management of mother, unspecified as to SP of care 656.40 Active SP Problem Supervision of normal first V22.0 Active SP Assessment Encounter for immunization Z23 A ctive SP Problem Screening examination for pulmonary tuberculosis V74.1 Active SP Problem Screening examination for venereal disease V74.5 Active SP Medications No Known Medications Procedures Procedure Coding System Code Date POS SINGLE IMMUNIZATION ADMIN CPT-4 90204 Jan SP FLUARIX QUAD (3 & UP)-GSK-2014 CPT-4 97201 N 2014 SP Results No Known Results Immunizations Vaccine Administration Date POS FLUARIX QUAD (3 & UP)-GSK-2014Feb 03, 2015 SP Summary Purpose [employer] Submission
== END 2019-01-31 05:36 | disposition home or self-care (01) ==
LOC: EDUNIT# 04:46 → ER 04:51
DX: S06.0X1A Concussion with loss of consciousness of 30 minutes or less, initial encounter (principal); S00.12XA Contusion of left eyelid and periocular area, initial encounter; M25.521 Pain in right elbow; R40.2142 Coma scale, eyes open, spontaneous, at arrival to emergency department; R40.2252 Coma scale, best verbal response, oriented, at arrival to emergency department; R40.2362 Coma scale, best motor response, obeys commands, at arrival to emergency department; Y04.8XXA Assault by other bodily force, initial encounter
CPT/HCPCS: 73080; 96372

== ENCOUNTER 2019-12-02 18:35 | Emergency (ER) | payer BC, OTHER ==
[~2019-12-02] VITALS: Ht 157.5 cm; Wt 103.5 kg
[~2019-12-02 18:35] MED LIST changes: +CYCL10TA9 PO
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
[2019-12-02 19:35] LABS: BILIRUBIN,URINE 1+ (NEGATIVE); CLARITY,URINE SL CLOUDY; COLOR,URINE YELLOW; GLUCOSE, URINE (UA) NEGATIVE (NEGATIVE); KETONES,URINE NEGATIVE (NEGATIVE); LEUKOCYTE ESTERASE ,URINE 1+ (NEGATIVE); NITRITE,URINE NEGATIVE (NEGATIVE); PROTEIN,URINE NEGATIVE (NEGATIVE)
[2019-12-02 19:37] LABS: BACTERIA,URINE FEW /HPF; RBC,URINE RARE /HPF; WBC,URINE 0-2 /HPF
[2019-12-02 19:38] LABS: AMPHETAMINE SCREEN, URINE NEGATIVE (NEGATIVE); BARBITURATE SCREEN URINE NEGATIVE (NEGATIVE); BENZODIAZEPINES SCREEN URINE NEGATIVE (NEGATIVE); CANNABINOID SCREEN, URINE POSITIVE (NEGATIVE); COCAINE SCREEN URINE NEGATIVE (NEGATIVE); METHADONE STAT NEGATIVE (NEGATIVE); METHAMPHETAMINE SCREEN URINE S NEGATIVE (NEGATIVE); OPIATE SCREEN URINE NEGATIVE (NEGATIVE); OXYCODONE STAT NEGATIVE (NEGATIVE); PROPOXYPHENE STAT NEGATIVE (NEGATIVE); TRICYCLIC ANTIDEPRESSANTS SCRE NEGATIVE (NEGATIVE)
[2019-12-02] MEDS ORDERED: KETOROLAC 60 MG/2 ML VIAL IM ONE (20:15)
[2019-12-02] MEDS ORDERED: ORPHENADRINE 60 MG/2 ML (NORFLEX) AMP (ED ONLY) IM ONE (20:15)
[2019-12-02] MEDS ORDERED: SULF1TAB35 PO (20:28)
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
[2019-12-02 21:40] VITALS: BP 133/98
== END 2019-12-02 21:40 | disposition home or self-care (01) ==
LOC: EDUNIT# 18:35 → ER 18:37
DX: R51 Headache (principal); N39.0 Urinary tract infection, site not specified; Z88.5 Allergy status to narcotic agent; Z88.2 Allergy status to sulfonamides; Z88.8 Allergy status to other drugs, medicaments and biological substances
CPT/HCPCS: 70450; 72125; 80306; 81000; 84703; 87088

== ENCOUNTER 2019-12-09 13:14 | Emergency (ER) | payer OTHER ==
[~2019-12-09] VITALS: Ht 157.5 cm; Wt 103.2 kg
[~2019-12-09 13:14] MED LIST changes: +SULF1TAB35 PO
[2019-12-09 13:46] VITALS: BP 107/74
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
== END 2019-12-09 14:24 | disposition home or self-care (01) ==
LOC: EDUNIT# 13:14 → ER 13:15
DX: R59.1 Generalized enlarged lymph nodes (principal)
CPT/HCPCS: 99284

== ENCOUNTER 2021-06-13 13:57 | Emergency (ER) | payer BC ==
[~2021-06-13] VITALS: Ht 157 cm; Wt 107.9 kg
[~2021-06-13 13:57] MED LIST changes: +CLIN-144 PO; -CLIN300C11 PO; +CYCL10TA25 PO; -CYCL10TA9 PO; -SULF1TAB35 PO; +SULF1TAB38 PO
[2021-06-13] MEDS ORDERED: LACTATED RINGERS 1,000 ML IV SCH (14:15)
[2021-06-13] MEDS ORDERED: ONDANSETRON 4 MG/2 ML (SDV) Z0FRAN IVP ONE (14:15)
--- NOTE | 2021-06-13 14:33 | ED General ---
General Chief Complaint: General Problems/Pain Stated Complaint: 15 WKS PREG - VOMITING - HEADACHE - SORE THROAT Source of Information: Patient Exam Limitations: No Limitations History of Present Illness Date Seen by Provider: Jun 13, 2021 Time Seen by Provider: 14:31 Initial Comments To ER with reports of a sore throat, left-sided earache, nausea vomiting for a few days no fevers no chills no cough no shortness of breath. She is also had some left lower abdominal pain. She has oliguria. She is about 15 weeks G3. Denies any vaginal bleeding. 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 She has had ultrasound confirming intrauterine . Timing/Duration: 3-4 Days Severity: Moderate Associated Systoms: Nausea/Vomiting Allergies and Home Medications Allergies Coded Allergies: No Known Drug Allergies (Unverified , 04/23/12) Patient Home Medication List Home Medication List Reviewed: Yes Cyclobenzaprine HCl (Cyclobenzaprine HCl) 10 Mg Tablet, 10 MG PO Q8H PRN for SPASMS Prescribed by: RODRIGUE SCHNEIDER on 01/31/19 0524 Hydrocodone Bit/Acetaminophen (Lortab 5 Mg Tablet) 1 Each Tablet, 1 TAB PO Q4H PRN Prescribed by: SUSY PIERCE on 09/30/15 0900 Ondansetron (Ondansetron Odt) 8 Mg Tab.rapdis, 8 MG PO Q6H PRN for NAUSEA/VOMITING Prescribed by: OSWALD MARY on 06/13/21 1638 Sulfamethoxazole/Trimethoprim (Bactrim Ds Tablet) 1 Each Tablet, 1 EACH PO BID Prescribed by: ASUNCION MONTOYA on 12/02/192027 Review of Systems Review of Systems Constitutional: see HPI; No chills, No fever EENTM: see HPI, nose congestion, throat pain Respiratory: no symptoms reported Cardiovascular: no symptoms reported Genitourinary: no symptoms reported Musculoskeletal: no symptoms reported Skin: no symptoms reported Psychiatric/Neurological: No Symptoms Reported Hematologic/Lymphatic: No Symptoms Reported Past Efsabaf-Cyhylf-Vookvh Hx Immunizations Up To Date Tetanus Booster (TDap): Less than 5yrs PED Vaccines UTD: No Seasonal Allergies Seasonal Allergies: No Past Medical History Surgeries: Yes (LEG I/D; "TUMOR FROM BACK OF NECK REMOVED") Respiratory: No Cardiac: Yes Heart Murmur Neurological: No Reproductive Disorders: No Gastrointestinal: No Musculoskeletal: No Endocrine: No HEENT: No Cancer: No Psychosocial: No Integumentary: No Blood Disorders: No Adverse Reaction/Blood Tranf: No Family Medical History Patient reports no known family medical history. No Pertinent Family Hx Physical Exam Vital Signs Vital Signs - First Documented 06/13/21 14:15 Temp 36.1 Pulse 90 Resp 18 B/P (MAP) 140/92 (108) Pulse Ox 99 Capillary Refill : Height, Weight, BMI Height: 5'3.00" Weight: 172lbs. 2.0oz. 78.733456uo; 41.00 BMI Method:Stated General Appearance: No Apparent Distress, WD/WN, Obese Eyes: Bilateral Eye Normal Inspection, Bilateral Eye PERRL, Bilateral Eye EOMI HEENT: PERRL/EOMI, TMs Normal, Normal ENT Inspection, Other (Little serous otitis on the left) Neck: Full Range of Motion, Normal Inspection Respiratory: Normal Breath Sounds, No Accessory Muscle Use, No Respiratory Distress Cardiovascular: Regular Rate, Rhythm, Normal Peripheral Pulses Gastrointestinal: Normal Bowel Sounds, Non Tender, Soft Extremity: Normal Capillary Refill, Normal Inspection Neurologic/Psychiatric: Alert, Oriented x3 Skin: Normal Color, Warm/Dry Progress/Results/Core Measures Suspected Sepsis SIRS Temperature: Pulse: Respiratory Rate: Laboratory Tests 06/13/21 14:27: White Blood Count 14.0H Blood Pressure / Mean: Laboratory Tests 06/13/21 14:27: Creatinine 0.60, Platelet Count 291, Total Bilirubin 0.3 Results/Orders Lab Results Laboratory Tests Test 06/13/21 14:27 06/13/21 15:29 06/13/21 15:32 Range/Units White Blood Count 14.0 H 4.3-11.0 10^3/uL Red Blood Count 4.32 3.80-5.11 10^6/uL Hemoglobin 12.4 11.5-16.0 g/dL Hematocrit 36 35-52 % Mean Corpuscular Volume 84 80-99 fL Mean Corpuscular Hemoglobin 29 25-34 pg Mean Corpuscular Hemoglobin Concent 34 32-36 g/dL Red Cell Distribution Width 13.6 10.0-14.5 % Platelet Count 291 130-400 10^3/uL Mean Platelet Volume 8.7 L 9.0-12.2 fL Immature Granulocyte % (Auto) 0 % Neutrophils (%) (Auto) 79 H 42-75 % Lymphocytes (%) (Auto) 16 12-44 % Monocytes (%) (Auto) 4 0-12 % Eosinophils (%) (Auto) 1 0-10 % Basophils (%) (Auto) 0 0-10 % Neutrophils # (Auto) 11.1 H 1.8-7.8 X 10^3 Lymphocytes # (Auto) 2.3 1.0-4.0 X 10^3 Monocytes # (Auto) 0.5 0.0-1.0 X 10^3 Eosinophils # (Auto) 0.1 0.0-0.3 10^3/uL Basophils # (Auto) 0.0 0.0-0.1 10^3/uL Immature Granulocyte # (Auto) 0.0 0.0-0.1 10^3/uL Sodium Level 137 135-145 MMOL/L Potassium Level 3.8 3.6-5.0 MMOL/L Chloride Level 105 98-107 MMOL/L Carbon Dioxide Level 22 21-32 MMOL/L Anion Gap 10 5-14 MMOL/L Blood Urea Nitrogen 4 L 7-18 MG/DL Creatinine 0.60 0.60-1.30 MG/DL Estimat Glomerular Filtration Rate 125 BUN/Creatinine Ratio 7 Glucose Level 83 70-105 MG/DL Calcium Level 9.5 8.5-10.1 MG/DL Corrected Calcium 10.0 8.5-10.1 MG/DL Total Bilirubin 0.3 0.1-1.0 MG/DL Aspartate Amino Transf (AST/SGOT) 8 5-34 U/L Alanine Aminotransferase (ALT/SGPT) 9 0-55 U/L Alkaline Phosphatase 81 40-136 U/L Total Protein 6.6 6.4-8.2 GM/DL Albumin 3.4 3.2-4.5 GM/DL Influenza Type A (RT-PCR) Not Detected Not Detecte Influenza Type B (RT-PCR) Not Detected Not Detecte SARS-CoV-2 RNA (RT-PCR) Not Detected Not Detecte Urine Color YELLOW Urine Clarity CLEAR Urine pH 6.0 5-9 Urine Specific [place] 1.025 H 1.016-1.022 Urine Protein NEGATIVE NEGATIVE Urine Glucose (UA) NEGATIVE NEGATIVE Urine Ketones NEGATIVE NEGATIVE Urine Nitrite NEGATIVE NEGATIVE Urine Bilirubin NEGATIVE NEGATIVE Urine Urobilinogen 0.2 < = 1.0 MG/DL Urine Leukocyte Esterase TRACE H NEGATIVE Urine RBC (Auto) NEGATIVE NEGATIVE Urine RBC NONE /HPF Urine WBC 2-5 /HPF Urine Squamous Epithelial Cells 10-25 H /HPF Urine Crystals PRESENT H /LPF Urine Amorphous Sediment MOD NAYELI URATES H /LPF Urine Bacteria TRACE /HPF Urine Casts NONE /LPF Urine Mucus SMALL H /LPF Urine Culture Indicated NO My Orders Orders - OSWALD MARY INFORMATION RESOURCES DIRECTOR Cbc With Automated Diff (06/13/21 14:01) Comprehensive Metabolic Panel (06/13/21 14:01) Ua Culture If Indicated (06/13/21 14:01) Ed Iv/Invasive Line Start (06/13/21 14:01) Influenza A And B By Pcr (06/13/21 14:01) Covid 19 Inhouse Test (06/13/21 14:01) Lactated Ringers (Lr 1000 Ml Iv Solution (06/13/21 14:15) Ondansetron Injection (Zofran Injectio (06/13/21 14:15) Medications Given in ED Current Medications Medications Dose Ordered Sig/Nelsy Route Start Time Stop Time Status Last Admin Dose Admin Ondansetron HCl 8 mg ONCE ONCE IVP 06/13/21 14:15 06/13/21 14:16 DC 06/13/21 14:30 8 MG Vital Signs/I&O 06/13/21 14:15 Temp 36.1 Pulse 90 Resp 18 B/P (MAP) 140/92 (108) Pulse Ox 99 Capillary Refill : Departure Communication (Admissions) 1655- heart tones 155 cardiac motion seen on bedside ultrasound Impression Primary Impression: Viral syndrome Additional Impression: Nausea/vomiting in Disposition: 01 HOME, SELF-CARE Condition: Stable Departure-Patient Inst. Decision time for Depature: 16:38 Referrals: [facility] (PCP/Family) Primary Care Physician Patient Instructions: Nausea and Vomiting, Adult ED Scripts Ondansetron (Ondansetron Odt) 8 Mg Tab.rapdis 8 MG PO Q6H PRN for NAUSEA/VOMITING, #10 TAB Prov: OSWALD MARY APRN 06/13/21 OSWALD MARY APRN Jun 13, 2021 14:33
[2021-06-13 14:38] LABS: BASOPHILS % (AUTO) 0 % (0-10); EOSINOPHILS # (AUTO) 0.1 10^3/uL (0.0-0.3); EOSINOPHILS % (AUTO) 1 % (0-10); HEMATOCRIT 36 % (35-52); HEMOGLOBIN 12.4 g/dL (11.5-16.0); LYMPHOCYTES # (AUTO) 2.3 X 10^3 (1.0-4.0); LYMPHOCYTES % (AUTO) 16 % (12-44); MEAN CORPUSCULAR HEMOGLOBIN 29 pg (25-34); MEAN CORPUSCULAR HGB CONC 34 g/dL (32-36); MEAN CORPUSCULAR VOLUME 84 fL (80-99); MEAN PLATELET VOLUME 8.7 fL (9.0-12.2); MONOCYTES # (AUTO) 0.5 X 10^3 (0.0-1.0); MONOCYTES % (AUTO) 4 % (0-12); NEUTROPHILS # (AUTO) 11.1 X 10^3 (1.8-7.8); NEUTROPHILS % (AUTO) 79 % (42-75); PLATELET COUNT 291 10^3/uL (130-400)
[2021-06-13 14:58] LABS: ALBUMIN 3.4 GM/DL (3.2-4.5)
[2021-06-13 14:59] LABS: POTASSIUM 3.8 MMOL/L (3.6-5.0)
[2021-06-13 15:00] LABS: CALCIUM 9.5 MG/DL (8.5-10.1)
[2021-06-13 15:01] LABS: TOTAL PROTEIN 6.6 GM/DL (6.4-8.2)
[2021-06-13 15:03] LABS: BILIRUBIN,TOTAL 0.3 MG/DL (0.1-1.0)
[2021-06-13 15:05] LABS: CREATININE SERUM 0.6 MG/DL (0.60-1.30)
[2021-06-13 15:38] LABS: BILIRUBIN,URINE NEGATIVE (NEGATIVE); CLARITY,URINE CLEAR; COLOR,URINE YELLOW; GLUCOSE, URINE (UA) NEGATIVE (NEGATIVE); KETONES,URINE NEGATIVE (NEGATIVE); LEUKOCYTE ESTERASE ,URINE TRACE (NEGATIVE); NITRITE,URINE NEGATIVE (NEGATIVE); PROTEIN,URINE NEGATIVE (NEGATIVE)
[2021-06-13 15:45] LABS: AMORPHOUS SEDIMENT,UR MOD AMOR URATES /LPF; BACTERIA,URINE TRACE /HPF
[2021-06-13] MEDS ORDERED: ONDA8TAB13 PO (16:38)
[2021-06-13 17:01] VITALS: BP 113/78
== END 2021-06-13 17:01 | disposition home or self-care (01) ==
LOC: EDUNIT# 13:57 → ER 13:59
DX: O21.0 Mild hyperemesis gravidarum (principal); B34.9 Viral infection, unspecified; E66.9 Obesity, unspecified; Z68.41 Body mass index [BMI] 40.0-44.9, adult; Z3A.15 15 weeks gestation of pregnancy
CPT/HCPCS: 36415; 80053; 81000; 85025; 87636

== ENCOUNTER 2021-07-21 07:11 | Outpatient (CLI) | payer BC ==
[~2021-07-21] VITALS: Ht 164 cm; Wt 111.6 kg
[2021-07-21 07:10] VITALS: BP 126/80
[~2021-07-21 07:11] MED LIST changes: -NITR-65 PO
[2021-07-21] MEDS ORDERED: NITR-65 PO (08:18)
--- NOTE | 2021-07-22 08:18 | Physician Query-Final Dx ---
,07/22/21 0818: Clinic Account Progress/Dx Physician Query: Please give diagnosis Please include # weeks gestation Date of Service Jul 21, 2021 at 07:11 JANETH RESTREPO MD 08/10/21 0725: Clinic Account Progress/Dx DIAGNOSIS: Diagnosis 1. IUP in early 3rd trimester 2. Decreased movements--reassuring monitor 3. Constipation 4. UTI ,AprJul 22, 2021 08:18 JANETH RESTREPO MD August 10, 2021 07:25
== END 2021-07-21 09:21 ==
LOC: WSo 07:11 → LDRP 07:11 → WSo 09:21
PROVIDERS: ATTEND Family Medicine
DX: O36.8130 Decreased fetal movements, third trimester, not applicable or unspecified (principal); O23.33 Infections of other parts of urinary tract in pregnancy, third trimester; N39.0 Urinary tract infection, site not specified; Z3A.00 Weeks of gestation of pregnancy not specified
CPT/HCPCS: 87088; G0463; 99214

== ENCOUNTER → 2021-07-21 | Emergency (ER) | payer BC ==
[~2021-07-21] MED LIST changes: +NITR-65 PO; +ONDA8TAB13 PO
== END ==
LOC: EDUNIT# 06:54 → ER 06:59
DX: O99.612 Diseases of the digestive system complicating pregnancy, second trimester (principal); K59.00 Constipation, unspecified; O26.892 Other specified pregnancy related conditions, second trimester; R11.0 Nausea; Z3A.20 20 weeks gestation of pregnancy

== ENCOUNTER 2021-09-29 14:40 | Outpatient (CLI) | payer BC ==
[2021-09-29] VITALS (11 sets, daily range): BP systolic 131–142; BP diastolic 77–93
[~2021-09-29] VITALS: Ht 157.5 cm; Wt 116.8 kg
[~2021-09-29 14:40] MED LIST changes: +NITR-65 PO
[2021-09-29 16:10] LABS: BILIRUBIN,URINE NEGATIVE (NEGATIVE); CLARITY,URINE CLOUDY; COLOR,URINE YELLOW; GLUCOSE, URINE (UA) NEGATIVE (NEGATIVE); KETONES,URINE NEGATIVE (NEGATIVE); LEUKOCYTE ESTERASE ,URINE 2+ (NEGATIVE); NITRITE,URINE NEGATIVE (NEGATIVE); PH,URINE 6.5 (5-9); PROTEIN,URINE TRACE (NEGATIVE)
[2021-09-29 16:39] LABS: BACTERIA,URINE LARGE /HPF
[2021-09-29 17:51] LABS: BASOPHILS % (AUTO) 0 % (0-10); EOSINOPHILS # (AUTO) 0.1 10^3/uL (0.0-0.3); EOSINOPHILS % (AUTO) 1 % (0-10); HEMATOCRIT 34 % (35-52); HEMOGLOBIN 11.5 g/dL (11.5-16.0); LYMPHOCYTES # (AUTO) 3.1 10^3/uL (1.0-4.0); LYMPHOCYTES % (AUTO) 19 % (12-44); MEAN CORPUSCULAR HEMOGLOBIN 29 pg (25-34); MEAN CORPUSCULAR HGB CONC 34 g/dL (32-36); MEAN CORPUSCULAR VOLUME 86 fL (80-99); MEAN PLATELET VOLUME 9.8 fL (9.0-12.2); MONOCYTES # (AUTO) 0.8 10^3/uL (0.0-1.0); MONOCYTES % (AUTO) 5 % (0-12); NEUTROPHILS % (AUTO) 75 % (42-75); PLATELET COUNT 241 10^3/uL (130-400)
[2021-09-29 18:06] LABS: POTASSIUM 4.1 MMOL/L (3.6-5.0)
[2021-09-29 18:08] LABS: CALCIUM 9.4 MG/DL (8.5-10.1); LYMPHOCYTES % (MANUAL) 9 %; MONOCYTES % (MANUAL) 8 %; NEUTROPHILS % (MANUAL) 83 %; RBC MORPH NORMAL
[2021-09-29 18:09] LABS: TOTAL PROTEIN 6.2 GM/DL (6.4-8.2)
[2021-09-29 18:11] LABS: BILIRUBIN,TOTAL 0.2 MG/DL (0.1-1.0)
[2021-09-29 18:13] LABS: CREATININE SERUM 0.63 MG/DL (0.60-1.30)
--- NOTE | 2021-09-29 18:59 | OB Triage Report ---
Standard Progress Note Progress Notes/Assess & Plan Date Seen by a Provider: Sep 29, 2021 Time Seen by a Provider: 18:00 Expected Date of Delivery: Dec 04, 2021 Gestational Age in Weeks: 30 Gestational Age in Days: 4 LMP/GABRIEL Comment: GABRIEL per patient report Progress/Assessment & Plan S: Patient is a 26 yo with IUP at 30w4d, who presents for decreased movements today. She denies any abdominal pain/contractions, LOF, or vaginal bleeding. She has been feeling good and usual movements since arrival to L&D triage. Her care has been at [facility], and her i s complicated by hx of 26 weeks IUFD and first trimester twin loss. She denies COOK, CP, SOB, palpitations, vision abnormalities, dysuria, hematuria, or abnormal vaginal discharge. O: Vital Signs 09/29/21 09/29/21 15:30 18:25 Temp 36.8 Pulse 93 Resp 20 B/P (MAP) 141/87 (105) Pulse Ox 96 O2 Delivery Room Air VS - Last 72 Hours, by Label 09/29/21 09/29/21 09/29/21 09/29/21 15:30 16:55 17:14 17:25 Temp 36.8 Pulse 102 94 86 102 Resp 20 20 20 20 B/P (MAP) 142/90 (107) 137/91 (106) 137/92 (107) Pulse Ox 96 O2 Delivery Room Air Room Air Room Air Room Air 09/29/21 09/29/21 09/29/21 09/29/21 17:40 17:55 18:10 18:25 Pulse 106 96 95 93 Resp 20 20 20 20 B/P (MAP) 140/89 (106) 142/93 (109) 138/82 (100) 141/87 (105) O2 Delivery Room Air Room Air Room Air Room Air General: no acute distress, resting comfortably Respirations: symmetric chest rise, non-labored respirations Heart: normal rate and peripheral perfusion Extremities: no edema, NTTP FHR: 140bpm, mod jody, + accels, - decels [place]: no contractions Laboratory Tests Test 09/29/21 13:50 09/29/21 17:41 Range/Units Urine Color YELLOW Urine Clarity CLOUDY Urine pH 6.5 5-9 Urine Specific [place] 1.020 1.016-1.022 Urine Protein 27 H 6-12 MG/DL Urine Glucose (UA) NEGATIVE NEGATIVE Urine Ketones NEGATIVE NEGATIVE Urine Nitrite NEGATIVE NEGATIVE Urine Bilirubin NEGATIVE NEGATIVE Urine Urobilinogen 0.2 < = 1.0 MG/DL Urine Leukocyte Esterase 2+ H NEGATIVE Urine RBC (Auto) NEGATIVE NEGATIVE Urine RBC 2-5 H /HPF Urine WBC 10-25 H /HPF Urine Squamous Epithelial Cells 10-25 H /HPF Urine Renal Epithelial Cells NONE /HPF Urine Crystals NONE /LPF Urine Bacteria LARGE H /HPF Urine Casts NONE /LPF Urine Mucus NEGATIVE /LPF Urine Culture Indicated YES Urine Creatinine 158 H 30-125 MG/DL Urine Protein/Creatinine Ratio 0.17 White Blood Count 16.0 H 4.3-11.0 10^3/uL Red Blood Count 4.01 3.80-5.11 10^6/uL Hemoglobin 11.5 11.5-16.0 g/dL Hematocrit 34 L 35-52 % Mean Corpuscular Volume 86 80-99 fL Mean Corpuscular Hemoglobin 29 25-34 pg Mean Corpuscular Hemoglobin Concent 34 32-36 g/dL Red Cell Distribution Width 13.7 10.0-14.5 % Platelet Count 241 130-400 10^3/uL Mean Platelet Volume 9.8 9.0-12.2 fL Immature Granulocyte % (Auto) 1 % Neutrophils (%) (Auto) 75 42-75 % Lymphocytes (%) (Auto) 19 12-44 % Monocytes (%) (Auto) 5 0-12 % Eosinophils (%) (Auto) 1 0-10 % Basophils (%) (Auto) 0 0-10 % Neutrophils # (Auto) 12.0 H 1.8-7.8 10^3/uL Lymphocytes # (Auto) 3.1 1.0-4.0 10^3/uL Monocytes # (Auto) 0.8 0.0-1.0 10^3/uL Eosinophils # (Auto) 0.1 0.0-0.3 10^3/uL Basophils # (Auto) 0.0 0.0-0.1 10^3/uL Immature Granulocyte # (Auto) 0.1 0.0-0.1 10^3/uL Neutrophils % (Manual) 83 % Lymphocytes % (Manual) 9 % Monocytes % (Manual) 8 % Blood Morphology Comment NORMAL Sodium Level 138 135-145 MMOL/L Potassium Level 4.1 3.6-5.0 MMOL/L Chloride Level 105 98-107 MMOL/L Carbon Dioxide Level 22 21-32 MMOL/L Anion Gap 11 5-14 MMOL/L Blood Urea Nitrogen 9 7-18 MG/DL Creatinine 0.63 0.60-1.30 MG/DL Estimat Glomerular Filtration Rate 124 BUN/Creatinine Ratio 14 Glucose Level 88 70-105 MG/DL Calcium Level 9.4 8.5-10.1 MG/DL Corrected Calcium 10.2 H 8.5-10.1 MG/DL Total Bilirubin 0.2 0.1-1.0 MG/DL Aspartate Amino Transf (AST/SGOT) 11 5-34 U/L Alanine Aminotransferase (ALT/SGPT) 9 0-55 U/L Alkaline Phosphatase 111 40-136 U/L Total Protein 6.2 L 6.4-8.2 GM/DL Albumin 3.0 L 3.2-4.5 GM/DL A/P: 1. Decreased FM: patient reports normal movements on arrival to triage and throughout stay in triage. FHT is reactive without decelerations. Instructions provided on kick counts 2. Mild range Blood pressures/gestational HTN: noted at least 2 hrs apart during stay in triage. likely gHTN. Patient denies any known hx of gHTN or cHTN. CBC, CMP, UPC without evidence of end organ involvement. Patient denies any symptoms of end organ involvement. Instructions provided on home BP checks and return precautions provided for signs and symptoms of preeclampsia 3. Return precautions provided. Patient to call OB provider clinic by 09/30/2021 to notify of diagnosis and follow-up plans. Next clinic appointment scheduled for 10/11/21 per pt report Shweta Figueredo MD Final Diagnosis 1. Decreased movement - Resolved 2. Gestational Hypertension SHWETA FIGUEREDO MD Sep 29, 2021 18:59
--- NOTE | 2021-09-29 20:00 | Short Stay Summary ---
Discharge Summary Hospital Course Final Diagnosis: Decreased movement, gestational hypertension Hospital Course Date of Admission: Admission Diagnosis : Family Physician/Provider: [facility] Date of Discharge: 09/29/21 Discharge Diagnosis: [ ] Hospital Course: [S: Patient is a 26 yo with IUP at 30w4d, who presents for decreased movements today. She denies any abdominal pain/contractions, LOF, or vaginal bleeding. She has been feeling good and usual movements since arrival to L&D triage. Her care has been at [place], and her is complicated by hx of 26 weeks IUFD and first trimester twin loss. She denies COOK, CP, SOB, palpitations, vision abnormalities, dysuria, hematuria, or abnormal vaginal discharge. O: Vital Signs 09/29/21 09/29/21 15:30 18:25 Temp 36.8 Pulse 93 Resp 20 B/P (MAP) 141/87 (105) Pulse Ox 96 O2 Delivery Room Air VS - Last 72 Hours, by Label 09/29/21 09/29/21 09/29/21 09/29/21 15:30 16:55 17:14 17:25 Temp 36.8 Pulse 102 94 86 102 Resp 20 20 20 20 B/P (MAP) 142/90 (107) 137/91 (106) 137/92 (107) Pulse Ox 96 O2 Delivery Room Air Room Air Room Air Room Air 09/29/21 09/29/21 09/29/21 09/29/21 17:40 17:55 18:10 18:25 Pulse 106 96 95 93 Resp 20 20 20 20 B/P (MAP) 140/89 (106) 142/93 (109) 138/82 (100) 141/87 (105) O2 Delivery Room Air Room Air Room Air Room Air General: no acute distress, resting comfortably Respirations: symmetric chest rise, non-labored respirations Heart: normal rate and peripheral perfusion Extremities: no edema, NTTP FHR: 140bpm, mod jody, + accels, - decels [place]: no contractions Laboratory Tests Test 09/29/21 13:50 09/29/21 17:41 Range/Units Urine Color YELLOW Urine Clarity CLOUDY Urine pH 6.5 5-9 Urine Specific [place] 1.020 1.016-1.022 Urine Protein 27 H 6-12 MG/DL Urine Glucose (UA) NEGATIVE NEGATIVE Urine Ketones NEGATIVE NEGATIVE Urine Nitrite NEGATIVE NEGATIVE Urine Bilirubin NEGATIVE NEGATIVE Urine Urobilinogen 0.2 < = 1.0 MG/DL Urine Leukocyte Esterase 2+ H NEGATIVE Urine RBC (Auto) NEGATIVE NEGATIVE Urine RBC 2-5 H /HPF Urine WBC 10-25 H /HPF Urine Squamous Epithelial Cells 10-25 H /HPF Urine Renal Epithelial Cells NONE /HPF Urine Crystals NONE /LPF Urine Bacteria LARGE H /HPF Urine Casts NONE /LPF Urine Mucus NEGATIVE /LPF Urine Culture Indicated YES Urine Creatinine 158 H 30-125 MG/DL Urine Protein/Creatinine Ratio 0.17 White Blood Count 16.0 H 4.3-11.0 10^3/uL Red Blood Count 4.01 3.80-5.11 10^6/uL Hemoglobin 11.5 11.5-16.0 g/dL Hematocrit 34 L 35-52 % Mean Corpuscular Volume 86 80-99 fL Mean Corpuscular Hemoglobin 29 25-34 pg Mean Corpuscular Hemoglobin Concent 34 32-36 g/dL Red Cell Distribution Width 13.7 10.0-14.5 % Platelet Count 241 130-400 10^3/uL Mean Platelet Volume 9.8 9.0-12.2 fL Immature Granulocyte % (Auto) 1 % Neutrophils (%) (Auto) 75 42-75 % Lymphocytes (%) (Auto) 19 12-44 % Monocytes (%) (Auto) 5 0-12 % Eosinophils (%) (Auto) 1 0-10 % Basophils (%) (Auto) 0 0-10 % Neutrophils # (Auto) 12.0 H 1.8-7.8 10^3/uL Lymphocytes # (Auto) 3.1 1.0-4.0 10^3/uL Monocytes # (Auto) 0.8 0.0-1.0 10^3/uL Eosinophils # (Auto) 0.1 0.0-0.3 10^3/uL Basophils # (Auto) 0.0 0.0-0.1 10^3/uL Immature Granulocyte # (Auto) 0.1 0.0-0.1 10^3/uL Neutrophils % (Manual) 83 % Lymphocytes % (Manual) 9 % Monocytes % (Manual) 8 % Blood Morphology Comment NORMAL Sodium Level 138 135-145 MMOL/L Potassium Level 4.1 3.6-5.0 MMOL/L Chloride Level 105 98-107 MMOL/L Carbon Dioxide Level 22 21-32 MMOL/L Anion Gap 11 5-14 MMOL/L Blood Urea Nitrogen 9 7-18 MG/DL Creatinine 0.63 0.60-1.30 MG/DL Estimat Glomerular Filtration Rate 124 BUN/Creatinine Ratio 14 Glucose Level 88 70-105 MG/DL Calcium Level 9.4 8.5-10.1 MG/DL Corrected Calcium 10.2 H 8.5-10.1 MG/DL Total Bilirubin 0.2 0.1-1.0 MG/DL Aspartate Amino Transf (AST/SGOT) 11 5-34 U/L Alanine Aminotransferase (ALT/SGPT) 9 0-55 U/L Alkaline Phosphatase 111 40-136 U/L Total Protein 6.2 L 6.4-8.2 GM/DL Albumin 3.0 L 3.2-4.5 GM/DL A/P: 1. Decreased FM: patient reports normal movements on arrival to triage and throughout stay in triage. FHT is reactive without decelerations. Instructions provided on kick counts 2. Mild range Blood pressures/gestational HTN: noted at least 2 hrs apart during stay in triage. likely gHTN. Patient denies any known hx of gHTN or cHTN. CBC, CMP, UPC without evidence of end organ involvement. Patient denies any symptoms of end organ involvement. Diagnosis and implications discussed with patient. Instructions provided on home BP checks and return precautions provided for signs and symptoms of preeclampsia 3. Patient to call her OB provider clinic tomorrow 09/30/2021 to notify of today's visit and diagnosis. Patient to keep all follow-up appointments as instructed] Labs and Pending Lab Test: Laboratory Tests 09/29/21 13:50: Urine Color YELLOW, Urine Clarity CLOUDY, Urine pH 6.5, Urine Specific [place] 1.020, Urine Protein 27H, Urine Glucose (UA) NEGATIVE, Urine Ketones NEGATIVE, Urine Nitrite NEGATIVE, Urine Bilirubin NEGATIVE, Urine Urobilinogen 0.2, Urine Leukocyte Esterase 2+H, Urine RBC (Auto) NEGATIVE, Urine RBC 2-5H, Urine WBC 10- 25H, Urine Squamous Epithelial Cells 10-25H, Urine Renal Epithelial Cells NONE, Urine Crystals NONE, Urine Bacteria LARGEH, Urine Casts NONE, Urine Mucus NEGATIVE, Urine Culture Indicated YES, Urine Creatinine 158H, Urine Protein/Creatinine Ratio 0.17 09/29/21 17:41: White Blood Count 16.0H, Red Blood Count 4.01, Hemoglobin 11.5, Hematocrit 34L, Mean Corpuscular Volume 86, Mean Corpuscular Hemoglobin 29, Mean Corpuscular Hemoglobin Concent 34, Red Cell Distribution Width 13.7, Platelet Count 241, Mean Platelet Volume 9.8, Immature Granulocyte % (Auto) 1, Neutrophils (%) (Auto) 75, Lymphocytes (%) (Auto) 19, Monocytes (%) (Auto) 5, Eosinophils (%) (Auto) 1, Basophils (%) (Auto) 0, Neutrophils # (Auto) 12.0H, Lymphocytes # (Auto) 3.1, Monocytes # (Auto) 0.8, Eosinophils # (Auto) 0.1, Basophils # (Auto) 0.0, Immature Granulocyte # (Auto) 0.1, Neutrophils % (Manual) 83, Lymphocytes % (Manual) 9, Monocytes % (Manual) 8, Blood Morphology Comment NORMAL, Sodium Level 138, Potassium Level 4.1, Chloride Level 105, Carbon Dioxide Level 22, Anion Gap 11, Blood Urea Nitrogen 9, Creatinine 0.63, Estimat Glomerular Filtration Rate 124, BUN/Creatinine Ratio 14, Glucose Level 88, Calcium Level 9.4, Corrected Calcium 10.2H, Total Bilirubin 0.2, Aspartate Amino Transf (AST/SGOT) 11, Alanine Aminotransferase (ALT/SGPT) 9, Alkaline Phosphatase 111, Total Protein 6.2L, Albumin 3.0L Home Meds Active Macrobid 100 mg Capsule (Nitrofurantoin Monohyd/M-Cryst) 100 Mg Capsule 1 Tab PO BID 7 Days Assessment/Pt Instructions Gestational hypertension: obtain home blood pressures at least 1 to 2 times a day, or when symptomatic. Reports to emergency room/labor and delivery for blood pressure of 160/110 (either number) or greater, or persistent headache that is not relieved with Tylenol 1000mg, rest, or hydration. Also report for chest pain, shortness of breath at rest, changes in vision, decreased or absent movements, or other concerns. Discharge Instructions Discharge Diet: Regular Diet Activity as Tolerated: Yes Discharge Physical Examination General Appearance: Alert, Oriented X3, Cooperative, No Acute Distress HEENT: Atraumatic, EOMI Respiratory: Other (non-labored respirations, symmetric chest rsie) Cardiovascular: Other (normal rate and peripheral perfusion) Abdominal: No Tenderness Extremities: No Clubbing, No Cyanosis, No Edema, Normal Pulses Neuro: Normal Gait, Normal Speech Psych/Mental Status: Mental Status NL, Mood NL Allergies: Coded Allergies: No Known Drug Allergies (Unverified , 04/23/12) Discharge Summary Date of Admission 09/29/2021 Date of Discharge 09/29/2021 Admission Diagnosis Decreased movement SHWETA FIGUEREDO MD Sep 29, 2021 19:58
== END 2021-09-29 20:10 ==
LOC: WSo 14:40 → LDRP 14:41 → WSo 20:10
PROVIDERS: ATTEND Obstetrics & Gynecology
DX: O36.8130 Decreased fetal movements, third trimester, not applicable or unspecified (principal); O13.3 Gestational [pregnancy-induced] hypertension without significant proteinuria, third trimester; Z3A.30 30 weeks gestation of pregnancy
CPT/HCPCS: 36415; 80053; 81000; 82570; 84156; 85007; 85027; 87088